=== PATIENT | male | born 1940 | race Asian ===

== ENCOUNTER → 2023-04-10 | Outpatient (CLI) | payer MEDICARE ==
[~2023-04-10] VITALS: Ht 160 cm; Wt 55.5 kg
[~2023-04-10] MED LIST: APIX5TAB PO; ATOR10TA PO; CHOL25TA4 PO; ICOS1CAP PO; LORA10TA7 PO; OMEG-135 PO; SACU1TAB PO; SENN-376 PO; TAMS-13 PO; ZOLP-280 PO
[2023-04-10 15:11] VITALS: BP 94/56; PULSE 109; RESP 15; TEMP 98.1; O2SAT 97
== END | disposition home or self-care (01) ==
LOC: SRCNTR 12:53
PROVIDERS: ATTEND Internal Medicine Pulmonary Disease
DX: I26.99 Other pulmonary embolism without acute cor pulmonale (principal); I42.8 Other cardiomyopathies; I10 Essential (primary) hypertension
CPT/HCPCS: G0463; Z7500

== ENCOUNTER → 2023-05-14 | Outpatient (CLI) | payer MEDICARE ==
[~2023-05-14] VITALS: Ht 160 cm; Wt 50.0 kg
[2023-05-14 13:37] VITALS: BP 90/62; PULSE 110; RESP 22; TEMP 98.2; O2SAT 98
== END | disposition home or self-care (01) ==
LOC: SRCNTR 13:03
PROVIDERS: ATTEND Internal Medicine Pulmonary Disease
DX: I26.99 Other pulmonary embolism without acute cor pulmonale (principal); R91.8 Other nonspecific abnormal finding of lung field; I42.9 Cardiomyopathy, unspecified; I27.20 Pulmonary hypertension, unspecified; Z79.01 Long term (current) use of anticoagulants; Z79.82 Long term (current) use of aspirin; Z79.899 Other long term (current) drug therapy; Z82.49 Family history of ischemic heart disease and other diseases of the circulatory system
CPT/HCPCS: G0463; Z7500

== ENCOUNTER → 2023-09-04 | Outpatient (CLI) | payer MEDICARE, OTHER ==
[~2023-09-04] VITALS: Ht 160 cm; Wt 53.0 kg
[~2023-09-04] MED LIST changes: -TAMS-13 PO; +TAMS0.4C94 PO
[2023-09-04 13:02] VITALS: BP 103/56; PULSE 89; RESP 18; TEMP 97.6; O2SAT 98
== END | disposition home or self-care (01) ==
LOC: SRCNTR 12:31
PROVIDERS: ATTEND Internal Medicine Pulmonary Disease
DX: I27.20 Pulmonary hypertension, unspecified (principal); I42.9 Cardiomyopathy, unspecified; R91.8 Other nonspecific abnormal finding of lung field; I26.99 Other pulmonary embolism without acute cor pulmonale
CPT/HCPCS: G0463; Z7500